=== PATIENT | female | born 1995 | race Caucasian/White ===

== ENCOUNTER 2018-01-20 00:55 | Emergency (ER) | payer SELFPAY ==
[2018-01-20] MEDS ORDERED: Famotidine 20 MG/2 ML SDV IVPUSH ONE (01:14)
[2018-01-20] MEDS ORDERED: Sodium Chloride 0.9% 10 ML Syringe FLUSH PRN (01:14)
[2018-01-20] MEDS ORDERED: methylPREDNISolone Sodium Succinate 125 MG/2 ML SDV IVPUSH ONE (01:14)
[2018-01-20] MEDS ORDERED: diphenhydrAMINE 50 MG/ML SDV IVPUSH ONE (01:15)
--- NOTE | 2018-01-20 01:19 | EDM.PDOC ---
ED HPI GENERAL MEDICAL PROBLEM - General Chief Complaint: Skin Complaint Stated Complaint: HIVES ITCHY Time Seen by Provider: 01/20/18 01:06 Source of Information: Reports: Patient History Limitations: Reports: No Limitations - History of Present Illness INITIAL COMMENTS - FREE TEXT/NARRATIVE: 22-year-old female presents the ED with generalized urticaria. Symptoms started about 3-1/2 hour ago with erythematous patches a few hives but severe pruritus. No respiratory embarrassment with cough or wheezing. No feeling of throat closure or tongue swelling. She's never had urticaria in the past. Of note she is on an antibiotic at present for a dental infection ,she believes it might be amoxicillin but she's not sure. This most likely is the culprit. Has been on it for about a week. 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 (see below) (None.) - Related Data Allergies Allergy/AdvReac Type Severity Reaction Status Date / Time No Known Allergies Allergy Verified 01/20/18 01:13 Home Meds: Home Meds predniSONE [Prednisone] 20 mg PO BID #10 tablet 01/20/18 [Rx] Social & Family History - Living Situation & Occupation Occupation: Unemployed ED ROS GENERAL - Review of Systems Review Of Systems: See Below Constitutional: Reports: No Symptoms HEENT: Reports: No Symptoms Respiratory: Reports: No Symptoms Cardiovascular: Reports: No Symptoms Endocrine: Reports: No Symptoms GI/Abdominal: Reports: No Symptoms : Reports: No Symptoms Musculoskeletal: Reports: No Symptoms Skin: Reports: Pruritis, Rash Neurological: Reports: No Symptoms (See history of present illness) Psychiatric: Reports: No Symptoms Hematologic/Lymphatic: Reports: No Symptoms Immunologic: Reports: No Symptoms ED EXAM, SKIN/RASH Exam: See Below Exam Limited By: No Limitations General Appearance: Alert, WD/WN, Moderate Distress (Can't even hardly sit still due to the severe pruritus.) Eye Exam: Bilateral Eye: Normal Inspection (No conjunctival or periorbital swelling.) Throat/Mouth: Normal Inspection, Normal Lips, Normal Teeth, Other Head: Atraumatic, Normocephalic (Uvula and floor the mouth are normal) Neck: Normal Inspection, Supple, Non-Tender, Full Range of Motion. No: Lymphadenopathy (L), Lymphadenopathy (R) Respiratory/Chest: No Respiratory Distress, Lungs Clear, Normal Breath Sounds, Chest Non-Tender. No: Wheezing Cardiovascular: Normal Peripheral Pulses, Regular Rate, Rhythm, No Edema, No Murmur Peripheral Pulses: 0: Radial (L) Extremities: Normal Inspection, Normal Range of Motion, Non-Tender Neurological: Alert, Oriented, CN II-XII Intact, Normal Cognition, No Motor/ Sensory Deficits Psychiatric: Normal Affect, Normal Mood Skin: Warm, Dry, Intact, Erythema (Large patches of erythema and occasional urticarial or hive lesions scattered across her back abdomen eczema and lower abdomen.) Location, Skin: Chest, Abdomen, Back, Upper Extremity, Right, Upper Extremity, Left, Lower Extremity, Right, Lower Extremity, Left, Groin Characteristics: Macular, Urticarial, Erythematous Associated features: Warmth Course - Vital Signs Last Recorded V/S: Last Vital Signs Temp 36.3 C 01/20/18 01:09 Pulse 80 01/20/18 01:09 Resp 16 01/20/18 01:09 BP 129/86 01/20/18 01:09 Pulse Ox 100 01/20/18 01:09 - Orders/Labs/Meds Orders: Active Orders 24 hr Category Date Time Status Peripheral IV Care [RC] . DIRECTED Care 01/20/18 01:14 Active Peripheral IV Insertion Adult [OM.PC] Stat Oth 01/20/18 01:14 Ordered Meds: Medications Discontinued Medications Generic Name Dose Route Start Last Admin Trade Name Freq PRN Reason Stop Dose Admin Diphenhydramine HCl 50 mg 01/20/18 01:15 01/20/18 01:26 Benadryl IVPUSH 01/20/18 01:16 50 mg ONETIME ONE Administration Famotidine 20 mg 01/20/18 01:14 01/20/18 01:26 Pepcid IVPUSH 01/20/18 01:15 20 mg ONETIME ONE Administration Methylprednisolone Sodium Succinate 125 mg 01/20/18 01:14 01/20/18 01:26 Solu-Medrol IVPUSH 01/20/18 01:15 125 mg ONETIME ONE Administration Sodium Chloride 10 ml 01/20/18 01:14 01/20/18 01:26 Saline Flush FLUSH 10 ml ASDIRECTED PRN Administration Keep Vein Open - Radiology Interpretation Free Text/Narrative:: 22-year-old female presents the ED with sudden onset of urticaria with erythematous patches and occasional hives scattered all over her body. Symptoms started about 3 hours ago. She is unable to sleep due to severe pruritus. Of note she is started on antibiotic by a dentist within the last week likely amoxicillin. This most likely is the culprit in terms of cause of the urticaria. Plan saline lock Pepcid 20 mg IV with Benadryl 50 mg IV and Cipro 125 mg IV. - Re-Assessments/Exams Free Text/Narrative Re-Assessment/Exam: 01/20/18 02:10: Itch is markedly improved. Erythema is gradually fading. She is feeling much improved. Will monitor for another half an hour and if she is okay she'll be discharged to home. 01/20/18 02:35 feeling much improved and she is not too drowsy from the Benadryl. Advised she may require Benadryl 50 mg orally every 6 hours for recurrence of rash and/or pruritus. She is to stop the antibiotic that she is on from the dentist for her dental infection presume this is most likely amoxicillin. I've asked her to fall back to the ED to let us know for sure what it is so that he can be written in the records as to what she is allergic to. She'll be placed on prednisone 20 mg twice daily for 5 days to help prevent recurrence of urticaria. Follow-up as needed. Departure - Departure Time of Disposition: :25 Disposition: Home, Self-Care 01 Condition: Fair Clinical Impression: Urticaria due to drug allergy - Discharge Information Prescriptions: predniSONE [Prednisone] 20 mg PO BID #10 tablet Instructions: Hives, [id number] Referrals: PCP,None [Primary Care Provider] - Forms: ED Department Discharge Additional Instructions: Evaluation the emergency room tonight in regards to development of hives and generalized urticaria with severe itching. The culprit is likely the antibiotic you're currently taking from the dentist for dental infection. It is likely a penicillin. I would appreciate if you can phone back to the ED at [phone] and let us know what the name of the antibiotic is for documentation purposes of course we strongly suggest that you never used this type of antibiotic again. Treatment in the ED was intravenous Pepcid Benadryl and Solu-Medrol to alleviate acute allergic response. You may require Benadryl 50 mg every 6 hours for recurrence of itch or rash over the next few days. A drug eruption typically last about 5 days. Also prescribed prednisone 20 mg to be taken breakfast and supper for the next 5 days to bring the allergic response under complete control. Of note having a hot shower or hot bath or exercising may bring the hives back out again. Of course return to the ED if you develop any problems with troubles breathing or swallowing. - My Orders Last 24 Hours: My Active Orders 01/20/18 01:14 Peripheral IV Care [RC] . DIRECTED Peripheral IV Insertion Adult [OM.PC] Stat - Assessment/Plan Last 24 Hours: My Active Orders 01/20/18 01:14 Peripheral IV Care [RC] . DIRECTED Peripheral IV Insertion Adult [OM.PC] Stat
== END 2018-01-20 03:00 | disposition home or self-care (01) ==
LOC: JD.ED 00:55
DX: L50.0 Allergic urticaria (principal); T36.0X5A Adverse effect of penicillins, initial encounter
CPT/HCPCS: 96374; 96375; 99283; J1200; J2930; J7050; 99284

== ENCOUNTER 2020-10-24 10:00 | Inpatient (IN) | payer BC ==
[2020-10-24] MEDS ORDERED: Sodium Chloride 0.9% 10 ML Syringe FLUSH PRN (10:31)
[2020-10-24] MEDS ORDERED: Nalbuphine 10 MG/1 ML Vial IVPUSH PRN (10:31)
[2020-10-24] MEDS ORDERED: Lidocaine 1% 50 ML MDV INJECT PRN (10:31)
[2020-10-24] MEDS ORDERED: ePHEDrine 50 MG/ML SDV IVPUSH PRN (10:36)
[2020-10-24] MEDS ORDERED: fentaNYL 100 MCG/2 ML SDV EPIDUR PRN (10:36)
[2020-10-24] MEDS ORDERED: Bupivacaine/fentaNYL/NS 100 ML Bag EPIDUR PRN (10:36)
[2020-10-24] MEDS ORDERED: diphenhydrAMINE 50 MG/ML SDV IVPUSH PRN (10:36)
[2020-10-24] MEDS: Lactated Ringers 1,000 ML IV SCH ×3 (10:40→15:47)
[2020-10-24] MEDS ORDERED: Oxytocin/Lactated Ringers 10 UNIT/1,000 ML BAG IV SCH ×2 (10:45→13:45)
--- NOTE | 2020-10-24 10:51 | PCM.PREANE ---
Preanesthetic Assessment - Procedure Proposed Procedure: Continuous labor epidural - Anesthesia/Transfusion/Family Hx Anesthesia History: Prior Anesthesia Without Reaction Transfusion History: No Prior Transfusion(s) - Review of Systems General: No Symptoms Pulmonary: No Symptoms Cardiovascular: No Symptoms Gastrointestinal: No Symptoms Neurological: No Symptoms Other: Reports: None - Physical Assessment Vital Signs: BP 145/89, HR 83, 22 RR, 96.7F Height: 1.6 m Weight: 71.214 kg ASA Class: 2 Mental Status: Alert & Oriented x3 Airway Class: Mallampati = 2 Dentition: Reports: Normal Dentition Thyro-Mental Finger Breadths: 3 Mouth Opening Finger Breadths: 3 ROM/Head Extension: Full Lungs: Clear to Auscultation, Normal Respiratory Effort Cardiovascular: Regular Rate, Regular Rhythm - Allergies Allergies/Adverse Reactions: Allergies Allergy/AdvReac Type Severity Reaction Status Date / Time Penicillins Allergy Hives Verified 10/24/20 10:35 - Acknowledgements Anesthesia Type Planned: Epidural Pt an Appropriate Candidate for the Planned Anesthesia: Yes Alternatives and Risks of Anesthesia Discussed w Pt/Guardian: Yes Pt/Guardian Understands and Agrees with Anesthesia Plan: Yes PreAnesthesia Questionnaire - Past Health History Medical/Surgical History: Denies Medical/Surgical History - CURRENT (IN HOUSE) MEDS Current Meds: Current Medications Diphenhydramine HCl (Benadryl) 25 mg IVPUSH Q6H PRN PRN Reason: pruritis Ephedrine Sulfate (Ephedrine Sulfate) 5 mg IVPUSH ASDIRECTED PRN PRN Reason: Hypotension Fentanyl (Sublimaze) 100 mcg EPIDUR Q3H PRN PRN Reason: Pain Fentanyl/Bupivacaine HCl (Fentanyl/Bupivacaine/Ns 2 Mcg-0.125% 100 Ml) 100 ml EPIDUR ASDIRECTED PRN PRN Reason: Pain Oxytocin/Lactated Ringer's (Pitocin In Lr 10 Units/1,000 Ml) 10 unit in 1,000 mls @ 500 mls/hr IV .CONTINUOUS FREDDIE Lactated Ringer's (Ringers, Lactated) 1,000 mls @ 100 mls/hr IV ASDIRECTED FREDDIE Lidocaine HCl (Xylocaine 1%) 50 ml INJECT ONETIME PRN PRN Reason: Pain Nalbuphine HCl (Nubain) 10 mg IVPUSH Q2H PRN PRN Reason: Pain Sodium Chloride (Saline Flush) 10 ml FLUSH ASDIRECTED PRN PRN Reason: Keep Vein Open
--- NOTE | 2020-10-24 12:22 | PCM.LDHP ---
L&D History of Present Illness - General Date of Service: 10/24/20 Admit Problem/Dx: Patient Status Order with Admit Dx/Problem 10/24/20 10:32 Patient Status [ADT] Routine Admission Diagnosis/Problem Admission Diagnosis/Problem - History of Present Illness Introduction:: 24 year old at 39w6 here for labor. 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 REPORTER History: Reports: - Past Surgical History HEENT Surgical History: Reports: Other (See Below) Other HEENT Surgeries/Procedures: wisdom teeth extraction Social & Family History - Tobacco Use Tobacco Use Status *Q: Never Tobacco User Second Hand Smoke Exposure: No - Caffeine Use Caffeine Use: Reports: Coffee - Recreational Drug Use Recreational Drug Use: No - Living Situation & Occupation Occupation: Unemployed H&P Review of Systems - Review of Systems: Review Of Systems: See Below General: Reports: No Symptoms HEENT: Reports: No Symptoms Pulmonary: Reports: No Symptoms Cardiovascular: Reports: No Symptoms Gastrointestinal: Reports: No Symptoms Genitourinary: Reports: No Symptoms Musculoskeletal: Reports: No Symptoms Skin: Reports: No Symptoms Psychiatric: Reports: No Symptoms Neurological: Reports: No Symptoms Hematologic/Lymphatic: Reports: No Symptoms Immunologic: Reports: No Symptoms L&D Exam - Exam Exam: See Below - Vital Signs Vital Signs: Last Vital Signs Temp Pulse 110 H 10/24/20 10:30 Resp BP 141/95 H 10/24/20 10:30 Pulse Ox Weight: 71.214 kg - OB Specific Contraction Intensity: Moderate Movement: Active Heart Tones: Present Heart Rate (FHR) Variability: Moderate (6-25 bmp) Presentation: Vertex - Matthew Score Matthew Score Cervix Position: Midposition Matthew Score Consistency: Medium Matthew Score Effacement: 31-50% Matthew Score Dilation: 3-4 cm Matthew Score Infant's Station: -2 Matthew Score Total: 6 - Exam General: Alert, Oriented HEENT: PERRLA, Conjunctiva Clear, EACs Clear, EOMI, Hearing Intact, Mucosa Moist & [place], Nares Patent, Normal Nasal Septum, Posterior Pharynx Clear, TMs Clear Neck: Supple, Trachea Midline Lungs: Clear to Auscultation, Normal Respiratory Effort Cardiovascular: Regular Rate, Regular Rhythm GI/Abdominal Exam: Normal Bowel Sounds, Soft, Non-Tender, No Organomegaly, No Distention, No Abnormal Bruit, No Mass, Pelvis Stable Genitourinary: Normal external exam Back Exam: Normal Inspection, Full Range of Motion Extremities: Normal Inspection, Normal Range of Motion, Non-Tender, No Pedal Edema, Normal Capillary Refill Skin: Warm, Dry, Intact Neurological: Cranial Nerves Intact, Reflexes Equal Bilateral Psychiatric: Alert, Normal Affect, Normal Mood - Patient Data Lab Results Last 24 hrs: Laboratory Results - last 24 hr 10/24/20 10/24/20 Range/Units 10:34 10:50 WBC 12.01 H (3.98-10.04) K/mm3 RBC 4.44 (3.98-5.22) M/mm3 Hgb 11.7 (11.2-15.7) gm/dl Hct 35.8 (34.1-44.9) % MCV 80.6 (79.4-94.8) fl MCH 26.4 (25.6-32.2) pg MCHC 32.7 (32.2-35.5) g/dl RDW Std Deviation 43.5 (36.4-46.3) fL Plt Count 279 (182-369) K/mm3 MPV 11.5 (9.4-12.3) fl Neut % (Auto) 85.0 H (34.0-71.1) % Lymph % (Auto) 11.2 L (19.3-51.7) % [place] % (Auto) 3.4 L (4.7-12.5) % Eos % (Auto) 0.2 L (0.7-5.8) Baso % (Auto) 0.2 (0.1-1.2) % Neut # (Auto) 10.22 H (1.56-6.13) K/mm3 Lymph # (Auto) 1.34 (1.18-3.74) K/mm3 [place] # (Auto) 0.41 H (0.24-0.36) K/mm3 Eos # (Auto) 0.02 L (0.04-0.36) K/mm3 Baso # (Auto) 0.02 (0.01-0.08) K/mm3 SARS-CoV-2 RNA (YRIS) Negative (NEGATIVE) Result Diagrams: 10/24/20 10:50 Problem List Initiated/Reviewed/Updated: Yes Orders Last 24hrs: Active Orders 24 hr Category Date Time Status Patient Status [ADT] Routine ADT 10/24/20 10:32 Active Activity as Tolerated [RC] PFP Care 10/24/20 10:32 Active Communication Order [RC] ASDIRECTED Care 10/24/20 10:32 Active Heart Tones [RC] ASDIRECTED Care 10/24/20 10:32 Active Non Stress Test [RC] PER UNIT ROUTINE Care 10/24/20 10:32 Active Notify Provider [RC] ASDIRECTED Care 10/24/20 10:36 Active Notify Provider [RC] PFP Care 10/24/20 10:32 Active Notify Provider [RC] PRN Care 10/24/20 10:32 Active Peripheral IV Care [RC] . DIRECTED Care 10/24/20 10:32 Active Vital Signs [RC] PER UNIT ROUTINE Care 10/24/20 10:32 Active Regular Diet [DIET] Diet 10/24/20 Lunch Active BLOOD BANK HOLD SPECIMEN [BBK] Stat Lab 10/24/20 10:31 Ordered RAPID PLASMA REAGIN,RPR [CHEM] Routine Lab 10/24/20 10:50 Received Bupivacaine/fentaNYL/NS [fentaNYL/Bupivacaine/NS 2 MCG- Med 10/24/20 10:36 Active 0.125% 100 ML] 100 ml EPIDUR ASDIRECTED PRN Lactated Ringers [Ringers, Lactated] 1,000 ml Med 10/24/20 10:45 Active IV ASDIRECTED Lidocaine 1% [Xylocaine 1%] Med 10/24/20 10:31 Active 50 ml INJECT ONETIME PRN Nalbuphine [Nubain] Med 10/24/20 10:31 Active 10 mg IVPUSH Q2H PRN Oxytocin/Lactated Ringers [Pitocin in LR 10 Units/1,000 Med 10/24/20 10:45 Active ML] 10 unit in 1,000 ml IV .CONTINUOUS Sodium Chloride 0.9% [Saline Flush] Med 10/24/20 10:31 Active 10 ml FLUSH ASDIRECTED PRN diphenhydrAMINE [Benadryl] Med 10/24/20 10:36 Active 25 mg IVPUSH Q6H PRN ePHEDrine [ePHEDrine sulfate] Med 10/24/20 10:36 Active 5 mg IVPUSH ASDIRECTED PRN fentaNYL [Sublimaze] Med 10/24/20 10:36 Active 100 mcg EPIDUR Q3H PRN Electronic Heart Tones Ext w TOCO [WOMSER] Oth 10/24/20 10:32 Ordered Routine Electronic Heart Tones Internal [WOMSER] Per Unit Oth 10/24/20 10:32 Ordered Routine Peripheral IV Insertion Adult [OM.PC] Routine Oth 10/24/20 10:32 Ordered Resuscitation Status Routine Resus Stat 10/24/20 10:31 Ordered Medication Orders Diphenhydramine HCl (Benadryl) 25 mg IVPUSH Q6H PRN PRN Reason: pruritis Ephedrine Sulfate (Ephedrine Sulfate) 5 mg IVPUSH ASDIRECTED PRN PRN Reason: Hypotension Fentanyl (Sublimaze) 100 mcg EPIDUR Q3H PRN PRN Reason: Pain Last Admin: 10/24/20 11:47 Dose: 100 mcg Documented by: JOHN Fentanyl/Bupivacaine HCl (Fentanyl/Bupivacaine/Ns 2 Mcg-0.125% 100 Ml) 100 ml EPIDUR ASDIRECTED PRN PRN Reason: Pain Last Admin: 10/24/20 11:47 Dose: 100 ml Documented by: JOHN Oxytocin/Lactated Ringer's (Pitocin In Lr 10 Units/1,000 Ml) 10 unit in 1,000 mls @ 500 mls/hr IV .CONTINUOUS [facility] Lactated Ringer's (Ringers, Lactated) 1,000 mls @ 100 mls/hr IV ASDIRECTED FREDDIE Last Admin: 10/24/20 11:48 Dose: 900 mls/hr Documented by: Infusion: 10/24/20 11:47 Dose: 500 mls/hr Documented by: Admin: 10/24/20 10:40 Dose: 900 mls/hr Documented by: JOHN Lidocaine HCl (Xylocaine 1%) 50 ml INJECT ONETIME PRN PRN Reason: Pain Nalbuphine HCl (Nubain) 10 mg IVPUSH Q2H PRN PRN Reason: Pain Sodium Chloride (Saline Flush) 10 ml FLUSH ASDIRECTED PRN PRN Reason: Keep Vein Open Assessment/Plan Comment:: Labor. Epidural in place. Doing well. Augment with pitocin if needed.
--- NOTE | 2020-10-24 17:26 | PCM.SN.2 ---
- Free Text/Narrative Note: Stage I - Patient presented in active labor. Progressed to compete with overall reassuring heart tones. Augmented with pitocin. Epidural for anesthesia. Stage II - of viable female, weight 3080g, 9/9 APGARS at 1709. Head delivered in controlled manner over intact perineum, body and shoulders atraumatically. To maternal abdomen, cord clamped and cut by FOB at one minute of life. Cord blood collected. Stage III - of intact placenta, 3vc, no laceration. EBL 200.
[2020-10-24] MEDS ORDERED: Benzocaine/Menthol 20%-0.5% Spray 56 GM Canister TOP PRN (18:03)
[2020-10-24] MEDS ORDERED: Hydrocortisone Acetate 25 MG Supp RECTAL PRN (18:03)
[2020-10-24] MEDS: Ibuprofen 600 MG Tab PO PRN (19:43)
[2020-10-24] MEDS: Witch Hazel Medicated Pads 40/Jar TOP PRN (19:44)
--- NOTE | 2020-10-25 06:58 | PCM48HPAN ---
Post Anesthesia Note - EVALUATION WITHIN 48HRS OF ANESTHETIC Vital Signs in Normal Range: Yes Patient Participated in Evaluation: Yes Respiratory Function Stable: Yes Airway Patent: Yes Cardiovascular Function Stable: Yes Hydration Status Stable: Yes Pain Control Satisfactory: Yes Nausea and Vomiting Control Satisfactory: Yes Mental Status Recovered: Yes Vital Signs: Last Vital Signs Temp 97.3 F 10/25/20 02:15 Pulse 80 10/25/20 02:15 Resp 16 10/25/20 02:15 BP 115/46 L 10/25/20 02:15 Pulse Ox 99 10/25/20 02:15 - COMMENTS/OBSERVATIONS Free Text/Narrative:: Patient is on her day 1. Stated understanding about possible backaches following epidural anesthesia. Mentions having some minor back soreness at this time. Explanation given about importance of avoiding back straining. Denies any headache or lightheadedness at this time. Comfortable now. Ambulating, no difficulty urinating.
--- NOTE | 2020-10-25 08:04 | PCM.PNPP ---
- General Info Date of Service: 10/25/20 Functional Status: Reports: Pain Controlled - Review of Systems General: Reports: No Symptoms HEENT: Reports: No Symptoms Pulmonary: Reports: No Symptoms Cardiovascular: Reports: No Symptoms Gastrointestinal: Reports: No Symptoms Genitourinary: Reports: No Symptoms Musculoskeletal: Reports: No Symptoms Skin: Reports: No Symptoms Neurological: Reports: No Symptoms Psychiatric: Reports: No Symptoms - General Info Date of Service: 10/25/20 - Patient Data Vital Signs - Most Recent: Last Vital Signs Temp 36.3 C 10/25/20 02:15 Pulse 80 10/25/20 02:15 Resp 16 10/25/20 02:15 BP 115/46 L 10/25/20 02:15 Pulse Ox 99 10/25/20 02:15 Weight - Most Recent: 71.214 kg I&O - Last 24 Hours: Intake & Output 10/24/20 10/25/20 10/25/20 22:59 06:59 14:59 Intake Total 1320 Balance 1320 Lab Results - Last 24 Hours: Laboratory Results - last 24 hr 10/24/20 10/24/20 10/24/20 Range/Units 10:34 10:50 10:50 WBC 12.01 H (3.98-10.04) K/mm3 RBC 4.44 (3.98-5.22) M/mm3 Hgb 11.7 (11.2-15.7) gm/dl Hct 35.8 (34.1-44.9) % MCV 80.6 (79.4-94.8) fl MCH 26.4 (25.6-32.2) pg MCHC 32.7 (32.2-35.5) g/dl RDW Std Deviation 43.5 (36.4-46.3) fL Plt Count 279 (182-369) K/mm3 MPV 11.5 (9.4-12.3) fl Neut % (Auto) 85.0 H (34.0-71.1) % Lymph % (Auto) 11.2 L (19.3-51.7) % [place] % (Auto) 3.4 L (4.7-12.5) % Eos % (Auto) 0.2 L (0.7-5.8) Baso % (Auto) 0.2 (0.1-1.2) % Neut # (Auto) 10.22 H (1.56-6.13) K/mm3 Lymph # (Auto) 1.34 (1.18-3.74) K/mm3 [place] # (Auto) 0.41 H (0.24-0.36) K/mm3 Eos # (Auto) 0.02 L (0.04-0.36) K/mm3 Baso # (Auto) 0.02 (0.01-0.08) K/mm3 Manual Slide Review Normal smear RPR Non-reactive (NONREACTIVE) SARS-CoV-2 RNA (YRIS) Negative (NEGATIVE) Med Orders - Current: Current Medications Benzocaine/Menthol (Dermoplast Pain Relief [place]) 0 gm TOP ASDIRECTED PRN PRN Reason: Perineal Comfort Measure Last Admin: 10/24/20 19:44 Dose: 1 applic Documented by: Hydrocortisone Acetate (Anucort-Hc) 25 mg RECTAL BID PRN PRN Reason: Hemorrhoid pain Ibuprofen (Motrin) 600 mg PO Q6H PRN PRN Reason: Mild pain or fever Last Admin: 10/24/20 19:43 Dose: 600 mg [facility] pad TOP ASDIRECTED PRN PRN Reason: Pain Last Admin: 10/24/20 19:44 Dose: 1 applic Documented by: Discontinued Medications Diphenhydramine HCl (Benadryl) 25 mg IVPUSH Q6H PRN PRN Reason: pruritis Ephedrine Sulfate (Ephedrine Sulfate) 5 mg IVPUSH ASDIRECTED PRN PRN Reason: Hypotension Fentanyl (Sublimaze) 100 mcg EPIDUR Q3H PRN PRN Reason: Pain Last Admin: 10/24/20 11:47 Dose: 100 mcg Documented by: Fentanyl/Bupivacaine HCl (Fentanyl/Bupivacaine/Ns 2 Mcg-0.125% 100 Ml) 100 ml EPIDUR ASDIRECTED PRN PRN Reason: Pain Last Admin: 10/24/20 11:47 Dose: 100 ml Documented by: Oxytocin/Lactated Ringer's (Pitocin In Lr 10 Units/1,000 Ml) 10 unit in 1,000 mls @ 500 mls/hr IV .CONTINUOUS FREDDIE Lactated Ringer's (Ringers, Lactated) 1,000 mls @ 100 mls/hr IV ASDIRECTED FREDDIE Last Admin: 10/24/20 15:47 Dose: 100 mls/hr Documented by: Oxytocin/Lactated Ringer's (Pitocin In Lr 10 Units/1,000 Ml) 10 unit in 1,000 mls @ 12 mls/hr IV TITRATE FREDDIE; Protocol Last Titration: 10/24/20 14:45 Dose: 6 munits/min, 36 mls/hr Documented by: Lidocaine HCl (Xylocaine 1%) 50 ml INJECT ONETIME PRN PRN Reason: Pain Nalbuphine HCl (Nubain) 10 mg IVPUSH Q2H PRN PRN Reason: Pain Sodium Chloride (Saline Flush) 10 ml FLUSH ASDIRECTED PRN PRN Reason: Keep Vein Open - Interaction Support Person: Significant Other - Recovery Exam Fundal Tone: Firm Fundal Level: At Umbilicus Fundal Placement: Midline Lochia Amount: Small, Moderate Lochia Color: Rubra/Red Perineum Description: Intact, Minimal Bruising/Swelling Bladder Status: Voiding - Exam General: Alert, Oriented HEENT: Pupils Equal Neck: Supple Lungs: Clear to Auscultation, Normal Respiratory Effort Cardiovascular: Regular Rate, Regular Rhythm GI/Abdominal Exam: Normal Bowel Sounds, Soft, Non-Tender, No Organomegaly, No Distention, No Abnormal Bruit, No Mass, Pelvis Stable Extremities: Normal Inspection, Normal Range of Motion, Non-Tender, No Pedal Edema, Normal Capillary Refill Neurological: No New Focal Deficit Psy/Mental Status: Alert, Normal Affect, Normal Mood - Problem List Review Problem List Initiated/Reviewed/Updated: Yes - My Orders Last 24 Hours: My Active Orders 10/24/20 10:31 Resuscitation Status Routine 10/24/20 Lunch Regular Diet [DIET] 10/24/20 18:03 Benzocaine/Menthol [Dermoplast Pain Relief [place]] See Dose Instructions TOP ASDIRECTED PRN Hydrocortisone Acetate [Anucort-HC] 25 mg RECTAL BID PRN Ibuprofen [Motrin] 600 mg PO Q6H PRN witch Zeke [Tucks] 1 pad TOP ASDIRECTED PRN Heat Therapy [OM.PC] PRN 10/24/20 18:03 Activity as Tolerated [RC] PER UNIT ROUTINE Vital Signs [RC] 03,09,15,21 Assess Lochia [WOMSER] Per Unit Routine Assess Uterine Involution [WOMSER] Per Unit Routine Breast Pump [WOMSER] Per Unit Routine Medication Administration Instruction [OM.PC] Routine Perineal Care [OM.PC] Per Unit Routine Sitz Bath [OM.PC] Per Unit Routine 10/25/20 18:03 Heat Therapy [OM.PC] PRN - Assessment Assessment:: PPD1 - Plan Plan:: Doing great. Likely home tomorrow
[2020-10-25] MEDS: Ibuprofen 600 MG Tab PO PRN ×3 (08:17→21:37)
[2020-10-25] MEDS: Docusate Sodium 100 MG Cap PO PRN ×2 (16:34→21:37)
[2020-10-26] MEDS: Ibuprofen 600 MG Tab PO PRN (08:19)
[2020-10-26] MEDS: Witch Hazel Medicated Pads 40/Jar TOP PRN (08:20)
== END 2020-10-26 11:27 | disposition home or self-care (01) | DRG 560 ==
LOC: JD.OBCHECK 10:00 → JD.OB 10:08 → JD.OBCHECK 10:32 → JD.OB 10:32 → OBSVTOIN 17:09 → JD.OB 17:10
PROVIDERS: ADMIT Obstetrics & Gynecology; ATTEND Obstetrics & Gynecology
PROC: 10E0XZZ Delivery of Products of Conception, External Approach (ICD-10-PCS; principal; 2020-10-24)
PROC: 3E0R3BZ Introduction of Anesthetic Agent into Spinal Canal, Percutaneous Approach (ICD-10-PCS; 2020-10-24)
DX: O98.52 Other viral diseases complicating childbirth (principal); B00.9 Herpesviral infection, unspecified; Z3A.39 39 weeks gestation of pregnancy; Z37.0 Single live birth; Z20.828 Contact with and (suspected) exposure to other viral communicable diseases
CPT/HCPCS: 01967; 36415; 51702; 59025; 59409; 85025; 86592; A9270-GY; J2590; J3010; J7120; U0002

== ENCOUNTER 2023-01-12 05:59 | Inpatient (IN) | payer SELFPAY ==
[2023-01-12] MEDS ORDERED: Sodium Chloride 0.9% 10 ML Syringe FLUSH PRN (06:50)
[2023-01-12] MEDS ORDERED: Ondansetron 4 MG/2 ML SDV IVPUSH PRN (06:50)
[2023-01-12] MEDS ORDERED: Nalbuphine 10 MG/0.5 ML Syringe IVPUSH PRN (06:50)
[2023-01-12] MEDS ORDERED: Lactated Ringers 1,000 ML IV SCH (07:00)
[2023-01-12] MEDS ORDERED: Oxytocin/Lactated Ringers 10 UNIT/1,000 ML BAG IV SCH (07:00)
[2023-01-12] MEDS ORDERED: Witch Hazel Medicated Pads 40/Jar TOP PRN (07:33)
[2023-01-12] MEDS ORDERED: Acetaminophen 325 MG Tab PO PRN (07:33)
[2023-01-12] MEDS ORDERED: Ibuprofen 600 MG Tab PO PRN (07:33)
[2023-01-12] MEDS ORDERED: Docusate Sodium 100 MG Cap PO PRN (07:33)
[2023-01-12] MEDS ORDERED: Benzocaine/Menthol 20%-0.5% Spray 78 GM Cannister TOP PRN (07:33)
[2023-01-12] MEDS ORDERED: Sodium Chloride 0.9% 10 ML Syringe FLUSH SCH (09:00)
== END 2023-01-13 10:05 | disposition home or self-care (01) | DRG 807 ==
LOC: JD.OBCHECK 05:59 → JD.OB 06:04 → JD.OBCHECK 06:36 → JD.OB 06:36
PROVIDERS: ADMIT Obstetrics & Gynecology; ATTEND Obstetrics & Gynecology
PROC: 10E0XZZ Delivery of Products of Conception, External Approach (ICD-10-PCS; principal; 2023-01-12)
DX: O98.32 Other infections with a predominantly sexual mode of transmission complicating childbirth (principal); Z37.0 Single live birth; Z3A.38 38 weeks gestation of pregnancy; A60.00 Herpesviral infection of urogenital system, unspecified; O77.0 Labor and delivery complicated by meconium in amniotic fluid; Z88.0 Allergy status to penicillin
CPT/HCPCS: 36415; 59025; 59409; 85027; 86592; 86850; 86900; 86901; A9270-GY; J2590

== ENCOUNTER 2025-09-14 02:43 | Inpatient (IN) | payer SELFPAY ==
[2025-09-14] MEDS ORDERED: Ondansetron 4 MG/2 ML SDV IVPUSH PRN (02:59)
[2025-09-14] MEDS ORDERED: Nalbuphine 10 MG/1 ML Vial IVPUSH PRN (02:59)
[2025-09-14] MEDS ORDERED: Lactated Ringers 1,000 ML IV SCH (03:00)
[2025-09-14 03:06] LABS: BASOPHILS ABSOLUTE AUTO 0.1 K/mm3 (0.0-0.2); BASOPHILS PERCENT AUTO 0.7 % (0.0-1.0); EOSINOPHILS ABSOLUTE AUTO 0.2 K/mm3 (0.0-0.4); EOSINOPHILS PERCENT AUTO 1.5 % (0.0-6.0); IMMATURE GRAN ABSOLUTE AUTO 0.12 K/mm3 (0.00-0.05); IMMATURE GRAN PERCENT AUTO 1.2 % (0.0-0.4); LYMPHOCYTES ABSOLUTE AUTO 2.8 K/mm3 (1.0-4.8); LYMPHOCYTES PERCENT AUTO 28.8 % (24.0-44.0); MEAN PLATELET VOLUME 11.7 fl (9.4-12.3); MONOCYTES ABSOLUTE AUTO 0.6 K/mm3 (0.0-0.8); MONOCYTES PERCENT AUTO 6.4 % (0.0-8.0); NEUTROPHILS ABSOLUTE AUTO 6.0 K/mm3 (1.8-7.7); NEUTROPHILS PERCENT AUTO 61.4 % (41.0-71.0); NRBC ABSOLUTE 0.00 (0.00-0.02); NRBC PERCENT 0.0 % (0.0-0.2); PLATELET COUNT,PLT 239 K/mm3 (150-400); RED BLOOD CELL COUNT 4.46 M/mm3 (4.10-5.30); WHITE BLOOD CELL COUNT,WBC 9.76 K/mm3 (3.9-11.3)
[2025-09-14] MEDS: Oxytocin/0.9 % Sodium Chloride 30 UNIT/500 ML BAG IV SCH ×2 (03:27→06:18)
[2025-09-14 04:33] LABS: ALANINE AMINOTRANSFERASE,ALT 26.0 U/L (14-59); ASPARTATE AMNIOTRANSFERASE,AST 33.0 U/L (15-37); BLOOD UREA NITROGEN,BUN 12.0 mg/dL (7-18); CREATININE 0.6 mg/dL (0.55-1.02); EST CRCL DRUG DOSING (CG) 115.47 mL/min; ESTIMATED GFR 125.0 mL/min (>60)
[2025-09-14] MEDS: Witch Hazel Medicated Pads 40/Jar TOP PRN (06:07)
[2025-09-14] MEDS: Benzocaine/Menthol 20%-0.5% Spray 78 GM Cannister TOP PRN (06:07)
[2025-09-14 10:05] LABS: CREATININE,URINE RAND 69.5 mg/dL (30.0-125.0); PROTEIN CREATININE RATIO,URINE 6692.1 mg/g (0-149); PROTEIN,URINE RANDOM 465.1 mg/dL (0.0-11.8)
[2025-09-14 13:46] LABS: CREATININE,URINE RAND 19.6 mg/dL (30.0-125.0); PROTEIN CREATININE RATIO,URINE 3250.0 mg/g (0-149); PROTEIN,URINE RANDOM 63.7 mg/dL (0.0-11.8)
== END 2025-09-15 09:52 | disposition home or self-care (01) | DRG 806 ==
LOC: JD.OBCHECK 02:43 → JD.OB 02:49 → JD.OBCHECK 02:59 → JD.OB 03:27 → OBSVTOIN 04:04
PROVIDERS: ADMIT Obstetrics & Gynecology; ATTEND Obstetrics & Gynecology
PROC: 10E0XZZ Delivery of Products of Conception, External Approach (ICD-10-PCS; principal; 2025-09-14)
DX: O14.94 Unspecified pre-eclampsia, complicating childbirth (principal); O98.52 Other viral diseases complicating childbirth; Z37.0 Single live birth; Z3A.38 38 weeks gestation of pregnancy; Z98.890 Other specified postprocedural states; Z88.0 Allergy status to penicillin; Z79.899 Other long term (current) drug therapy
CPT/HCPCS: 36415; 51701; 59025; 59409; 82565; 82570; 84156; 84450; 84460; 84520; 84550; 85025; 86592; A9270-GY; J7999